=== PATIENT | female | born 1975 | race Caucasian/White ===

== ENCOUNTER 2018-03-12 22:15 | Emergency (ER) | payer MEDICAID ==
[~2018-03-12] VITALS: Ht 152.4 cm; Wt 82.6 kg
[~2018-03-12 22:15] MED LIST: ACETAMINOPHEN-120 ML PO; ALBUTEROL INHAL17 GM; ALBUTEROL INHAL17 GM IH; ALBUTEROL2.5 MG/0.1 INH; ATROVENT15 ML NS; AUGMENTIN 875875 MG PO; AZITHROMYCIN; BACTRIM DS TAB1 EACH PO; BETASERON0.3 MG/SY1 SC; BIAXIN 500 MG500 M2 PO; CARISOPRODOL 3350 MG PO; CELEXA40 MG PO; CHERATUSSIN AC118 ML PO; CLARITIN10 MG; FLEXERIL PO; FLONASE 0.05%50 MCG; FLOVENT HFA 2220 MC1 IH; HYDROCHLOROTHIA25 M1 PO; HYDROCODON-ACE1 EAC8 PO; HYDROCODONE-AP1 EAC6 PO; IBUPROFEN 800800 M1 PO; KEFLEX500 M1 PO; KEFLEX500 MG PO; LEVAQUIN 750 M750 MG PO; MEDROL DOSPAK21 TA1 PO; MEDROLDOSEPACK PO; MUCINEX600 MG PO; NORCO 5-325 TA1 EACH PO; PREDNISONE 20 M20 MG PO; PROAIR HFA8.5 GM INH; PROMETH-CODEIN 65 ML PO; PROMETHAZINE-C120 ML PO; TRIAMCINOLONE A15 G2 TP; VENTOLIN17 GM INH; VICODIN 5-5001 EACH PO; VITAMIN D2000 UNIT PO
[2018-03-12] MEDS ORDERED: LISINOPRIL10 MG PO (22:34)
[2018-03-13 00:14] VITALS: BP 152/87
== END 2018-03-13 00:16 | disposition home or self-care (01) ==
LOC: M.ERS 22:15
DX: S30.0XXA Contusion of lower back and pelvis, initial encounter (principal); I10 Essential (primary) hypertension; F17.210 Nicotine dependence, cigarettes, uncomplicated; Z91.041 Radiographic dye allergy status; X58.XXXA Exposure to other specified factors, initial encounter; Y93.89 Activity, other specified; Y92.89 Other specified places as the place of occurrence of the external cause; Y99.8 Other external cause status

== ENCOUNTER 2018-07-17 20:43 | Emergency (ER) | payer MEDICAID ==
[~2018-07-17] VITALS: Ht 152.4 cm; Wt 79.8 kg
[~2018-07-17 20:43] MED LIST changes: +LISINOPRIL10 MG PO
[2018-07-17 21:16] LABS: URINE BILIRUBIN NEGATIVE (Negative); URINE BLOOD NEGATIVE (Negative); URINE CLARITY CLEAR; URINE COLOR YELLOW; URINE GLUCOSE-RANDOM NEGATIVE (Negative); URINE KETONES NEGATIVE (Negative); URINE LEUKOCYTES-REFLEX NEGATIVE (Negative); URINE NITRITE-REFLEX NEGATIVE (Negative); URINE PROTEIN NEGATIVE (Negative); URINE UROBILINOGEN 0.2 E.U./dl (0.2-1.0)
[2018-07-17 21:49] LABS: ABSOLUTE BASOPHILS 0.1 thou/uL (0.0-0.2); ABSOLUTE EOSINOPHILS 0.4 thou/uL (0.0-0.7); ABSOLUTE LYMPHOCYTES 2.8 thou/uL (0.8-5.3); ABSOLUTE MONOCYTES 0.6 thou/uL (0.0-1.2); ABSOLUTE NEUTROPHILS 5.8 thou/uL (1.6-8.1); BASOPHILS 1.2 %; EOSINOPHILS 3.9 %; HEMATOCRIT 41.1 % (37.0-47.0); HEMOGLOBIN 13.9 gm/dL (12.0-15.0); LYMPHOCYTES 29.1 %; MCH 30.9 pg (26.0-34.0); MCHC 33.8 g/dL (28.0-37.0); MCV 91.5 fL (80.0-100.0); MONOCYTES 6.1 %; MPV 6.8 fl. (7.2-11.1); NUCLEATED RBCS 0 /100WBC; PLATELET COUNT* 335 thou/uL (150-400); POLYS 59.7 %; RBC 4.49 mil/uL (4.20-5.00); RDW-CV 14.2 % (10.5-14.5); WBC 9.7 thou/uL (4.0-11.0)
[2018-07-17 21:56] LABS: CALCIUM 8.7 mg/dL (8.5-10.1); CREATININE 0.7 mg/dL (0.6-1.3); POTASSIUM 4.2 mmol/L (3.5-5.1)
[2018-07-17] MEDS ORDERED: NORCO 7.5-3251 EACH PO (22:46)
[2018-07-17 22:53] VITALS: BP 147/103
== END 2018-07-17 22:55 | disposition home or self-care (01) ==
LOC: M.ERS 20:43
PROVIDERS: Emergency Medicine
DX: R10.32 Left lower quadrant pain (principal); R05 Cough; I10 Essential (primary) hypertension; F17.210 Nicotine dependence, cigarettes, uncomplicated; Z91.041 Radiographic dye allergy status

== ENCOUNTER 2018-08-10 16:49 | Emergency (ER) | payer MEDICAID ==
[~2018-08-10] VITALS: Ht 152.4 cm; Wt 78.5 kg
[~2018-08-10 16:49] MED LIST changes: +NORCO 7.5-3251 EACH PO
[2018-08-10] MEDS ORDERED: VENTOLIN HFA 1818 GM INH (17:29)
[2018-08-10] MEDS ORDERED: MEDROLDOSEPACK PO (17:29)
[2018-08-10 17:37] VITALS: BP 143/69
== END 2018-08-10 17:38 | disposition home or self-care (01) ==
LOC: M.ERS 16:49
DX: B34.9 Viral infection, unspecified (principal); I10 Essential (primary) hypertension; F17.210 Nicotine dependence, cigarettes, uncomplicated; Z91.041 Radiographic dye allergy status

== ENCOUNTER 2018-08-17 21:45 | Emergency (ER) | payer MEDICAID ==
[~2018-08-17] VITALS: Ht 152.4 cm; Wt 79.8 kg
[~2018-08-17 21:45] MED LIST changes: +VENTOLIN HFA 1818 GM INH
[2018-08-17] MEDS ORDERED: PREDNISONE 20 M20 M1 PO (22:46)
[2018-08-17 22:54] VITALS: BP 134/80
== END 2018-08-17 22:57 | disposition home or self-care (01) ==
LOC: M.ERS 21:45
DX: J20.9 Acute bronchitis, unspecified (principal); I10 Essential (primary) hypertension; F17.210 Nicotine dependence, cigarettes, uncomplicated; Z91.041 Radiographic dye allergy status

== ENCOUNTER 2018-09-17 20:29 | Emergency (ER) | payer MEDICAID ==
[~2018-09-17] VITALS: Ht 152.4 cm; Wt 79.8 kg
[~2018-09-17 20:29] MED LIST changes: +PREDNISONE 20 M20 M1 PO
[2018-09-17] MEDS ORDERED: CHERATUSSIN AC118 ML PO (21:05)
[2018-09-17] MEDS ORDERED: LEVAQUIN 500 M500 M2 PO (21:05)
[2018-09-17] MEDS ORDERED: PREDNISONE 20 M20 MG PO (21:05)
[2018-09-17 21:11] VITALS: BP 128/80
== END 2018-09-17 21:11 | disposition home or self-care (01) ==
LOC: M.ERS 20:29
DX: J40 Bronchitis, not specified as acute or chronic (principal); I10 Essential (primary) hypertension; G35 Multiple sclerosis; F17.210 Nicotine dependence, cigarettes, uncomplicated; Z98.890 Other specified postprocedural states; Z91.041 Radiographic dye allergy status

== ENCOUNTER 2021-09-02 16:37 | Emergency (ER) | payer MEDICAID ==
[~2021-09-02] VITALS: Ht 152.4 cm; Wt 82.1 kg
[~2021-09-02 16:37] MED LIST changes: +LEVAQUIN 500 M500 M2 PO
[2021-09-02] MEDS ORDERED: AUGMENTIN 875-1 EACH PO (17:05)
[2021-09-02] MEDS ORDERED: IBUPROFEN 800800 M1 PO (17:05)
[2021-09-02 17:09] VITALS: BP 146/99
== END 2021-09-02 17:10 | disposition home or self-care (01) ==
LOC: M.ERS 16:37
DX: H66.91 Otitis media, unspecified, right ear (principal); I10 Essential (primary) hypertension; F17.210 Nicotine dependence, cigarettes, uncomplicated; Z79.899 Other long term (current) drug therapy; Z91.02 Food additives allergy status

== ENCOUNTER 2021-09-25 16:57 | Emergency (ER) | payer MEDICAID ==
[~2021-09-25] VITALS: Ht 152.4 cm; Wt 86.6 kg
[~2021-09-25 16:57] MED LIST changes: +AUGMENTIN 875-1 EACH PO
[2021-09-25 19:04] LABS: INFLUENZA A ANTIGEN Negative (Negative); INFLUENZA B ANTIGEN Negative (Negative)
[2021-09-25] MEDS ORDERED: MEDROLDOSEPACK PO (19:23)
[2021-09-25] MEDS ORDERED: TESSALON PERLE100 MG PO (19:23)
[2021-09-25 19:29] VITALS: BP 150/80
== END 2021-09-25 19:30 | disposition home or self-care (01) ==
LOC: M.ERS 16:57
PROVIDERS: Physician Assistant
DX: J06.9 Acute upper respiratory infection, unspecified (principal); Z20.822 Contact with and (suspected) exposure to COVID-19; R05.9 Cough, unspecified; I10 Essential (primary) hypertension; F17.210 Nicotine dependence, cigarettes, uncomplicated; Z79.899 Other long term (current) drug therapy; Z91.02 Food additives allergy status

== ENCOUNTER 2021-09-28 15:50 | Emergency (ER) | payer MEDICAID ==
[~2021-09-28] VITALS: Ht 152.4 cm; Wt 86.6 kg
[~2021-09-28 15:50] MED LIST changes: +TESSALON PERLE100 MG PO
[2021-09-28 17:01] LABS: URINE BILIRUBIN NEGATIVE (Negative); URINE BLOOD NEGATIVE (Negative); URINE CLARITY CLEAR; URINE COLOR YELLOW; URINE GLUCOSE-RANDOM NEGATIVE (Negative); URINE KETONES NEGATIVE (Negative); URINE LEUKOCYTES NEGATIVE (Negative); URINE NITRITE NEGATIVE (Negative); URINE PROTEIN NEGATIVE (Negative); URINE UROBILINOGEN 0.2 E.U./dl (0.2-1.0)
[2021-09-28 17:09] LABS: INFLUENZA A ANTIGEN Negative (Negative); INFLUENZA B ANTIGEN Negative (Negative)
[2021-09-28] MEDS ORDERED: IPRAT-ALBUT 0.5-3 ML INH (17:15)
[2021-09-28 17:22] VITALS: BP 142/90
== END 2021-09-28 17:23 | disposition home or self-care (01) ==
LOC: M.ERS 15:50
PROVIDERS: Physician Assistant
DX: J20.9 Acute bronchitis, unspecified (principal); Z20.822 Contact with and (suspected) exposure to COVID-19; I10 Essential (primary) hypertension; F17.210 Nicotine dependence, cigarettes, uncomplicated; Z79.899 Other long term (current) drug therapy; Z98.890 Other specified postprocedural states

== ENCOUNTER 2021-10-02 21:00 | Emergency (ER) | payer MEDICAID ==
[~2021-10-02] VITALS: Ht 152.4 cm; Wt 86.6 kg
[~2021-10-02 21:00] MED LIST changes: +IPRAT-ALBUT 0.5-3 ML INH
[2021-10-02 21:41] LABS: INFLUENZA A ANTIGEN Negative (Negative); INFLUENZA B ANTIGEN Negative (Negative)
[2021-10-03] MEDS ORDERED: HYDROCODONE-CH115 ML PO (01:53)
[2021-10-03] MEDS ORDERED: IPRAT-ALBUT 0.5-3 ML INH (01:53)
[2021-10-03] MEDS ORDERED: PREDNISONE 20 M20 M1 PO (01:53)
[2021-10-03] MEDS ORDERED: AUGMENTIN 875-1 EACH PO (01:53)
[2021-10-03 02:02] VITALS: BP 142/93
--- NOTE | 2021-10-03 12:18 | EKG ---
[place] [address] ELECTROCARDIOGRAM REPORT Name: PINKY DILLARD Room: [facility]#: [id number] Admission: 10/02/21 Attend Phys: Discharge: 10/03/21 Date of : 71 Date of Service: 10/02/212109 Report #: [id number] THIS REPORT FOR: //name// [facility] ED Test Date: 2021-10-02 Test Time: 21:10:06 Pat Name: PINKY DILLARD Department: Room: Gender: Insurance Processor: : 1975 Requested By: Melvi Sauceda Order Number: [id number] MD: Buzz Brown Measurements Intervals [place] Rate: 102 P: 78 TN: 146 QRS: 81 QRSD: 67 T: 72 QT: 333 QTc: 434 Interpretive Statements Sinus tachycardia Compared to ECG 10/13/2008 00:36:58 Sinus rhythm no longer present Electronically Signed On 10-03-2021 12:18:19 [employer]EF[employer]GER by Buzz Brown [email or web address] <ELECTRONICALLY SIGNED> By: Buzz Brown MD, [facility] 10/03/21 1218 09 09 Buzz Brown MD, [facility] /EPI
== END 2021-10-03 02:02 | disposition home or self-care (01) ==
LOC: M.ERS 21:00
PROVIDERS: Emergency Medicine
DX: J40 Bronchitis, not specified as acute or chronic (principal); Z20.822 Contact with and (suspected) exposure to COVID-19; I10 Essential (primary) hypertension; F17.210 Nicotine dependence, cigarettes, uncomplicated; Z79.899 Other long term (current) drug therapy; Z91.02 Food additives allergy status